=== PATIENT | female | born 2000 | race Caucasian/White ===

== ENCOUNTER 2023-04-21 17:35 | Outpatient (RCR) | payer MEDICAID, SELFPAY ==
--- NOTE | 2023-04-21 18:27 | HP.PTEVAL ---
Patient's Visit Information Visit Information Visit Information: MAKI CHAN is a 22 year old F referred to Physical Therapy by JARET Gregorio with a diagnosis of SPASTIC DIPLEGIC CERBRAL PALSY. Date of Evaluation: 04/21/23 Physical Therapist: Ki Parmar PT, Cert MDT, OCS Visit Plan Frequency: 1visit Plan: This patient will benefit from w/c modification with cushion and power assist due to patient is very active in community and works at senior care as a activity assist thus these modification is need to optimize patient functional [place] at work demands and community with outings ,and Dr appointment and length patient will be in W/C Subjective Subjective: This 22 y/o female presents to physical therapy with w/c evaluation with CP. Patient has had cerebral palsy since . Patient needs and power assist w/c modification. Patient is very active at w/c level. Patient lives alone. Patient uses power wheelchair. Patient lives apartment with ramp. Patient tub/shower setup no grab bars. Patient has rear wheel walker. Patient is able to dress self self hygiene. Patient does cooking microwave. Patient does cleaning. Patient is Independent with transfers and bed mobility. Patient has assist with driving and transportation [employer]. Denies paresthesia/tingling, denies pain. Patient is not incontinence. Patient denies any pressure ulcers. Patient as no h/o pressure sores. Patient benefit from w/c modification due to be so active . VOCATION: [employer] SOCIAL: singe Objective Objective: POSTURE: posterior pelvic tilt NEURO: denies paresthesia/tingling ,hyperreflexia Achilles/patella tendon ,spastic diplegia BLE SYMMTRIES : asymmetries pelvis GAIT: ambulates with transfers with BUE for transfers BED MOBILITY: supine -sit mod I TRANSFERS : sit-stand and standing pivot mod I Sitting balance: GOOD- PROM: hip flexion 100 degrees ,knee flexion 95 degrees ,hip abduction 25 degrees ,dorsiflexion -5 degrees ,bilateral MMT: poor quads/hams/hip has some active motion Goals Goal 1:: Patient will benefit from w/c modification Goal Time Frame: 1 visist Rehabilitation Potential Physical Therapy Diagnosis: This patient will benefit from w/c modification with cushion and power assist due to patient is very active in community and works at senior care as a activity assist thus these modification is need to optimize patient functional [place] at work demands and community with outings ,and Dr appointment and length patient will be in W/C Rehabilitation Potential: Fair Anticipated Interventions Patient/Client Instruction: Educate patient on: Condition and Plan of Care For the Purpose of:: Other Other: w/c modifications Text: Thank you for the opportunity to evaluate your patient. For Medicare and Medicare HMO plans, please review the plan of care and approve it. It will need to be FAXED BACK to us at [phone] for Medicare purposes. For Medicare only, by signing this I certify the plan of care. Please let me know if there are questions or concerns regarding this plan of care. Physician Signature: Date:
== END 2023-04-21 19:00 | disposition home or self-care (01) ==
LOC: PT 17:35
PROVIDERS: PCP Pediatrics; Referring Provider Nurse Practitioner Family; Visit Provider Nurse Practitioner Family
DX: G50.1 Atypical facial pain (principal)
CPT/HCPCS: 97162